=== PATIENT | female | born 1970 | race Caucasian/White ===

== ENCOUNTER → 2016-07-11 06:10 | Day surgery (SDC) | payer OTHER ==
[~2016-07-11 06:10] MED LIST: Atracurium* 10 MG/ML 10 ML VIAL ONE; Buffered Lidocaine 1% SYRIN* 3 ML/SYR SYRINGE INTRADERM ONE; Bupivacaine 0.5% SDV PF* 30 ML VIAL ONE; Dexamethasone IV* 4 MG/ML 1 ML (4 MG) ONE; EPINEPHrine AMP 1 MG/ML ONE; HYDROmorphone* 1 MG/ML 1 ML SYR IV PRN; Midazolam* 1 MG/ML 5 ML VIAL (5 MG) ONE; Ondansetron INJ* 2 MG/ML VIAL IV PRN; Ondansetron INJ* 2 MG/ML VIAL ONE; Propofol* 10 MG/ML 20 ML BTL IV PUSH ONE; ceFAZolin 2 GM PREMIX(*) 2 GM/50 ML BAG IVPB ONE; diPHENhydraMINE IV* 50 MG/ML 1 ml VIAL (BENADRYL) IV PRN; diPHENhydraMINE IV* 50 MG/ML 1 ml VIAL (BENADRYL) ONE; fentaNYL* 50 MCG/ML 2 ML VIAL (100 MCG VIAL) IV PRN; fentaNYL* 50 MCG/ML 2 ML VIAL (100 MCG VIAL) ONE; oxyCODONE TAB* 5 MG TAB PO PRN
[2016-07-11 12:24] VITALS: BP 105/70
--- NOTE | 2016-07-11 23:10 | OP ---
DATE OF OPERATION: 07/11/16 - [facility] DATE OF : 70 SURGEON: Will Castro MD OUTPATIENT THERAPIST: MALDONADO Flores ANESTHESIOLOGIST: Jose Mas MD ANESTHESIA: General anesthesia, regional interscalene block anesthesia. PRE-OP DIAGNOSES: 1. Right shoulder supraspinatus high-grade partial thickness tear. 2. Right shoulder possible subscapularis rotator cuff tear. 3. Right shoulder biceps subluxation. 4. Right shoulder superior labral tear. 5. Right shoulder subacromial impingement. 6. Right shoulder acromioclavicular joint arthritis. POST-OP DIAGNOSES: 1. Right shoulder high-grade partial thickness under-sided articular-sided supraspinatus rotator cuff tendon tear. 2. No significant subscapularis right shoulder tendon tear. 3. Right shoulder proximal biceps subluxation. 4. Right shoulder subacromial impingement. 5. Right shoulder superior labrum tear. 6. Right shoulder acromioclavicular joint osteoarthritis. OPERATIVE PROCEDURE: 1. Right shoulder examination under anesthesia. 2. Right shoulder arthroscopic rotator cuff repair, supraspinatus. 3. Right shoulder arthroscopic release of proximal biceps tendon. 4. Right shoulder arthroscopic debridement of superior labrum. 5. Right shoulder arthroscopic revision subacromial decompression. 6. Right shoulder arthroscopic distal clavicle resection. 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 The patient states that her pain greatly increased at work on with a torquing activity at work. She felt or heard a snap. This pain was treated by me with a cortisone subacromial injection and physical therapy for over 6 weeks. This caused her pain to decrease in March and April. The patient continued with home exercises. Unfortunately, the patient's pain recurred. It caused her to miss 13 days of work. Recently, she had returned to work and with only limited hours and was not tolerating that secondary to pain. The patient was also having significant pain with sleeping. These symptoms were very similar to those that she had prior to shoulder surgery in [address] Ray Richards, specifically on 06/07/13, a right shoulder subacromial decompression. She was noted at the time of that surgery to have some fraying, low grade, on the undersurface of the anterior aspect of the supraspinatus. The patient on exam had positive subacromial impingement signs, mild weakness, but no pain with belly-press maneuver, and no pain or weakness with bear hug. The patient on previous exams had had pain with supraspinatus stress testing, but did not at the last clinic visit. Positive tenderness to palpation of the AC joint, proximal biceps and positive Speed's and Wolfe signs. She had positive tenderness to palpation at Codman's point. X-rays demonstrated significant AC joint narrowing with cyst in the distal clavicle and osteophytes off the inferior clavicle. There were some signs of some decompression of the lateral aspect of the anterior hook of the acromion likely from prior subacromial decompression. MRI demonstrated a high-grade partial thickness tear on the articular side of the supra-spinatus about its anterior aspect. Posterior, there looked like there was some bursal-sided fraying. There was also some signal change in the subscapularis indicative of a possible tear. Also AC joint arthritic changes were clearly visible. The patient opted for surgical management. ANTIBIOSIS: 2 g Ancef IV. IV FLUIDS: See Anesthesia note. COMPLICATIONS: None. SPECIMEN: None. ESTIMATED BLOOD LOSS: Minimal. IMPLANTS: Mitek Neno and Neno, [place] double-loaded suture anchor 5.5 mm x1. DESCRIPTION OF PROCEDURE: Preoperative written consent. Operative extremity marked in the preoperative holding. Discussed benefits, risks, and potential complications of surgery. The patient was taken back to the operating room and placed supine on the operating room table. Regional interscalene block performed by Anesthesia. The patient was then sedated and intubated. The patient was then turned into lateral decubitus position with the right shoulder up. An axillary roll, all bony prominences padded, and ugarte bag insufflated. Fifteen pounds of longitudinal traction in right upper extremity was placed after I did an examination under anesthesia. Examination under anesthesia demonstrated 180 degrees of forward flexion passively, 90 degrees of external rotation, and 80 degrees of internal rotation with the shoulder abducted. With the shoulder in traction, the right shoulder was prepped and draped. Surgical time-out was performed. 30 cc of normal saline were injected with spinal needle into the glenohumeral joint from posterior. Posterior glenohumeral joint portal was established using standard technique. Diagnostic arthroscopy of the joint was performed. No cartilage lesions of the humeral head or glenoid. [place] complex was noted. There was noted to be significant fraying about the superior labrum. The biceps tendon did not have significant tendinosis, but it was clearly subluxed medially. There was clearly undersurface fraying and tearing of the anterior most aspect of the supraspinatus rotator cuff tendon. There was a little bit of bulbous nature to the more posterior aspect of the supraspinatus. There was a little bit of fraying in the superior most subscapularis. Anterior glenohumeral joint portal was established under direct visualization. I made this portal an anteroinferior portal just in case a subscapularis repair would be required. Through the anterior portal, I used arthroscopic scissors to cut the proximal biceps. Biceps retracted. I used arthroscopic shaver to debride some rotator interval tissue. I then debrided a little bit of fraying at the top of the subscapularis. With the subscapularis on stretch with posterior translation and external rotation of the shoulder passively, the subscapularis appeared fully intact. I probed it with arthroscopic probe, likewise fully intact. Therefore, I decided subscapularis rotator cuff tear was not required. I then used the arthroscopic shaver to debride the superior labrum back to stable base. It clearly had some unusual stuff to it indicating some instability, but it was not flapping into the joint or anything like that. I placed spinal needles x2 in the supraspinatus. One in the anterior most articular- sided supraspinatus rotator cuff tear after debriding the clearly diseased tissue with arthroscopic shaver. I then put another spinal needle more posterior where the rotator cuff had been a little bulbous, but did not have a torn tissue when I lightly debrided some with the arthroscopic shaver. Removed the scope and fluid from joint. Went to the subacromial space from posterior and anterior. Established a lateral subacromial portal under direct visualization. There was not significant bursitis in the subacromial space. I used an arthroscopic shaver to debride the gutters about the subacromial space. I used VAPR electrocautery to clear off the undersurface of the acromion. Probed the areas about each spinal needle. There was not significant softening about the posterior needle, although there was a tiny bit of fraying there visible after I used an arthroscopic shaver to remove the top layer of bursa overlying the rotator cuff tendon. That spinal needle was removed. Regarding the more anterior spinal needle, I probed in there and there was some clearly softened and torn tissue. The remaining intact rotator cuff tendon was very minimal part of the thickness of the rotator cuff at that spot. Completed the rotator cuff tear in that location with arthroscopic shaver. This only required light debridement. I then cleared off the footprint corresponding to that part of rotator cuff tendon with the VAPR electrocautery. Established posterolateral and lateral portals to aid in visualization. This tear was very anterior, so I did much of this work through an anterolateral portal rather than through my lateral portal. Visualized well my small full-thickness now supraspinatus rotator cuff tendon tear. Cuff solid grasper was used to reduce the cuff nicely. Then, I turned my attention to the acromion. Viewing posteriorly and working from lateral, I performed a subacromial decompression with an arthroscopic bur. Most of the work was done about the inferior aspect of the anterior hook of the acromion. I then addressed the rotator cuff tendon tear. I created a superolateral portal and placed through it a 5.5-mm [place] double-loaded suture anchor. I placed 2 horizontal mattress stitches in the rotator cuff tendon supraspinatus using a RPEMA device. Horizontal mattress stitches were tied. Probed the repair and it was very solid. Lateral row anchor was not required. Took photographs. Repair was stable with motion of the shoulder. Then, directed my attention to the AC joint. Debrided bursitic tissue about the AC joint with the VAPR electrocautery and shaver. Debrided 8 mm of the distal clavicle with arthroscopic bur. This decompression went through the cyst that had been visible on MRI. Visualized all 4 corners of distal clavicle nicely. Debrided a little bit of superior meniscus in that joint. Removed fluid and instruments. Closed the skin incisions with figure- of-8 stitches using nylon 4 -0 suture. Xeroform, 4x4s, ABD's, foam tape, and UltraSling. The patient was awakened, extubated, and brought to the PACU. DISPOSITION: The patient will be discharged home when medically stable. She will receive Keflex antibiosis times a week and oxycodone for pain. She will follow up in 10 to 14 days postoperative. [id number]/[facility] #: [id number] TINA
== END | disposition home or self-care (01) ==
LOC: OR 06:10
PROVIDERS: ATTEND Orthopaedic Surgery
DX: S46.011A Strain of muscle(s) and tendon(s) of the rotator cuff of right shoulder, initial encounter (principal); M75.41 Impingement syndrome of right shoulder; M19.011 Primary osteoarthritis, right shoulder; F17.210 Nicotine dependence, cigarettes, uncomplicated; K21.9 Gastro-esophageal reflux disease without esophagitis; X50.3XXA Overexertion from repetitive movements, initial encounter; Y93.89 Activity, other specified; Y92.69 Other specified industrial and construction area as the place of occurrence of the external cause; Y99.0 Civilian activity done for income or pay
CPT/HCPCS: J0171; J0690; J1100; J1200; J2250; J2405; J2704; J3010

== ENCOUNTER 2017-11-03 21:36 | Emergency (ER) | payer OTHER ==
[2017-11-03] MEDS ORDERED: Cyclobenzaprine TAB* 10 MG PO ONE (21:56)
--- NOTE | 2017-11-03 21:59 | UC ---
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 no pain radiating in to her legs - History of Current Complaint Chief Complaint: UCBackPain Stated Complaint: BACK INJURY Time Seen by Provider: 11/03/17 21:48 Hx Obtained From: Patient ?: No Onset/Duration: Gradual Onset, Lasting Days - 10-14 days, Worse Since - past 3-4 Timing: Constant Severity Initially: Moderate Severity Currently: Moderate Back Pain: Is Discrete @ Character: Aching, Throbbing, Spasmodic Aggravating Factor(s): Movement, Lifting, Bending Alleviating Factor(s): Nothing Associated Signs And Symptoms: Positive: Negative - Allergies/Home Medications Allergies/Adverse Reactions: Allergies Allergy/AdvReac Type Severity Reaction Status Date / Time acetaminophen [From Tylenol] Allergy Anaphylatic Verified 11/03/17 21:55 Shock aspirin Allergy Anaphylatic Verified 11/03/17 21:55 Shock clindamycin Allergy Rash Verified 11/03/17 21:55 erythromycin base Allergy Vomiting Verified 11/03/17 21:55 Influenza Virus Vaccines Allergy Anaphylatic Verified 11/03/17 21:55 Shock Iodine and Iodide Containing Allergy Unknown Verified 11/03/17 21:55 Produc Reaction Details NSAIDS (Non-Steroidal Allergy Anaphylatic Verified 11/03/17 21:55 Anti-Inflamma Shock procaine [From Novocain] Allergy Anaphylatic Verified 11/03/17 21:55 Shock tetracycline Allergy Rash Verified 11/03/17 21:55 NUNEZ 2 INHIBITORS Allergy Severe Anaphylatic Uncoded 07/11/16 06:32 Shock NOVACAINE Allergy Severe Anaphylatic Uncoded 07/11/16 06:32 Shock PMH/Surg Hx/FS Hx/Imm Hx Previously Healthy: No Other History Of: Negative For: Anticoagulant Therapy - Surgical History Surgical History: Yes Surgery Procedure, Year, and Place: [place], [place] [facility] [place] st[place]), 2004 - . screws in right ankle, 1989 - [facility] [place]. [place]illectomy , [place] 14 - [facility] [place]. right shoulder rotator cuff tear, 2013 - [facility] [place] - Family History Known Family History: Positive: None, Cardiac Disease - Social History Occupation: Employed Full-time Lives: With Family Alcohol Use: None Substance Use Type: None Smoking Status (MU): Current Every Day Smoker Type: Cigarettes Amount Used/How Often: 3/4 ppd Length of Time of Smoking/Using Tobacco: 29 Have You Smoked in the Last Year: Yes Household Exposure Type: Cigarettes - Immunization History Most Recent Influenza Vaccination: allergy to it Review of Systems Constitutional: Negative Skin: Negative Eyes: Negative ENT: Negative Respiratory: Negative Cardiovascular: Negative Gastrointestinal: Negative Genitourinary: Negative Motor: Negative Neurovascular: Negative Musculoskeletal: Arthralgia - mid/lowerback, Myalgia - mid/lower back Neurological: Negative Psychological: Negative Is Patient Immunocompromised?: No All Other Systems Reviewed And Are Negative: Yes Physical Exam Triage Information Reviewed: Yes Appearance: Well-Appearing, Pain Distress, Obese Vital Signs Reviewed: Yes Eye Exam: Normal Eyes: Positive: Conjunctiva Clear ENT Exam: Normal ENT: Positive: Normal ENT inspection, Hearing grossly normal. Negative: Trismus , Muffled voice, Hoarse voice Neck exam: Normal Neck: Positive: Supple, Nontender Respiratory Exam: Normal Respiratory: Positive: Chest non-tender, Normal breath sounds, No respiratory distress, No accessory muscle use Cardiovascular Exam: Normal Cardiovascular: Positive: RRR, Pulses Normal, Brisk Capillary Refill Abdominal Exam: Normal Abdomen Description: Positive: Nontender, No Organomegaly. Negative: CVA Tenderness (R), CVA Tenderness (L) Bowel Sounds: Positive: Present Musculoskeletal Exam: Normal Musculoskeletal: Positive: Strength Intact, No Edema, ROM Limited @ - lumbar spine Neurological Exam: Normal Neurological: Positive: Alert, Muscle Tone Normal Psychological Exam: Normal Skin Exam: Normal Back Pain Course/Dx - Course Course Of Treatment: muscle relaxors, pt referral, follow with pcp - Differential Dx/Diagnosis Provider Diagnoses: mid low back pain/muscle strain, nicotine dependent Discharge - Sign-Out/Discharge Documenting (check all that apply): Patient Departure - Discharge Plan Condition: Stable Disposition: HOME Patient Education Materials: Low Back Strain (ED), Lower Back Exercises (ED) Forms: *Work Release Referrals: Jag Aguilar MD [Primary Care Provider] - 5 Days - Billing Disposition and Condition Condition: STABLE Disposition: Home
[2017-11-03 22:03] VITALS: BP 118/61
== END 2017-11-03 22:11 | disposition home or self-care (01) ==
LOC: UCEAST 21:36
DX: S39.012A Strain of muscle, fascia and tendon of lower back, initial encounter (principal); M54.5 Low back pain; F17.210 Nicotine dependence, cigarettes, uncomplicated; Z88.6 Allergy status to analgesic agent; Z88.8 Allergy status to other drugs, medicaments and biological substances; Z88.1 Allergy status to other antibiotic agents; Z88.7 Allergy status to serum and vaccine; Z88.5 Allergy status to narcotic agent
CPT/HCPCS: 99212; A9270-GY; G0463

== ENCOUNTER 2018-02-25 03:29 | Emergency (ER) | payer OTHER ==
--- NOTE | 2018-02-25 04:08 | ED ---
Lower Extremity - HPI Summary HPI Summary: This patient is a 47 year old M presenting to [facility] with a chief complaint of left ankle pain. She states she was at work when she was getting out of a chair an injured her ankle. The patient rates the pain 6/10 in severity. Symptoms aggravated by weight bearing. Pt declined pain medication - History of Current Complaint Chief Complaint: EDExtremityLower Stated Complaint: LT ANKLE INJURY Time Seen by Provider: 02/25/18 03:40 Hx Obtained From: Patient Mechanism Of Injury: Other Onset of Pain: Immediate Onset/Duration: Hours Severity Initially: Moderate Severity Currently: Moderate Pain Intensity: 6 Pain Scale Used: 0-10 Numeric Timing: Constant Location: Is Discrete @ - L ankle Associated Signs And Symptoms: Negative: Fever Aggravating Factor(s): Ambulation Able to Bear Weight: Yes Related History: Occupational Injury - Allergies/Home Medications Allergies/Adverse Reactions: Allergies Allergy/AdvReac Type Severity Reaction Status Date / Time acetaminophen [From Tylenol] Allergy Anaphylatic Verified 02/25/18 03:33 Shock aspirin Allergy Anaphylatic Verified 02/25/18 03:33 Shock clindamycin Allergy Rash Verified 02/25/18 03:33 erythromycin base Allergy Vomiting Verified 02/25/18 03:33 Influenza Virus Vaccines Allergy Anaphylatic Verified 02/25/18 03:33 Shock Iodine and Iodide Containing Allergy Unknown Verified 02/25/18 03:33 Produc Reaction Details NSAIDS (Non-Steroidal Allergy Anaphylatic Verified 02/25/18 03:33 Anti-Inflamma Shock procaine [From Novocain] Allergy Anaphylatic Verified 02/25/18 03:33 Shock tetracycline Allergy Rash Verified 02/25/18 03:33 NUNEZ 2 INHIBITORS Allergy Severe Anaphylatic Uncoded 02/25/18 03:33 Shock NOVACAINE Allergy Severe Anaphylatic Uncoded 02/25/18 03:33 Shock PMH/Surg Hx/FS Hx/Imm Hx Endocrine/Hematology History: Denies: Hx Anticoagulant Therapy, Hx Diabetes, Hx Thyroid Disease Cardiovascular History: Reports: Hx Angina - HX OF 4 YEARS AGO- NO PROBLEMS SINCE, Hx Hypertension - was on meds for 5 yrs, no longer uses, Other Cardiovascular Problems/Disorders - cardiac cath 2004, no stents - 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 Denies: Hx Pacemaker/ICD Respiratory History: Denies: Hx Asthma, Hx Chronic Obstructive Pulmonary Disease (COPD) GI History: Reports: Hx Gastroesophageal Reflux Disease - DIET CONTROLLED- NO MEDICATION FOR Denies: Hx Ulcer History: Denies: Hx Renal Disease Musculoskeletal History: Reports: Hx Arthritis - right shoulder, Other Musculoskeletal History - right ankle fx, 1989 Sensory History: Reports: Hx Contacts or Glasses - glasses Denies: Hx Hearing Aid Opthamlomology History: Reports: Hx Contacts or Glasses - glasses Neurological History: Denies: Hx Dementia, Hx Seizures Psychiatric History: Denies: Hx Panic Disorder, Hx Substance Abuse - Cancer History Cancer Type, Location and Year: cervical - HYSTERECTOMY Hx Chemotherapy: No Hx Radiation Therapy: No - Surgical History Surgery Procedure, Year, and Place: hysterectomy, 1997 - [facility] [place]. cardiac cath (no stents), 2004 - [facility]. screws in right ankle, 1989 - [facility] [place]. tonsillectomy , age 14 - [facility] [place]. right shoulder rotator cuff tear, 2013 - [facility] [place] Hx Anesthesia Reactions: No - Immunization History Date of Tetanus Vaccine: Unk Date of Influenza Vaccine: Fall 2011 Infectious Disease History: No Infectious Disease History: Denies: Hx Clostridium Difficile, Hx Hepatitis, Hx Human Immunodeficiency Virus (HIV), Hx of Known/Suspected MRSA, Hx Shingles, Hx Tuberculosis, Hx Known/ Suspected VRE, Hx Known/Suspected VRSA, History Other Infectious Disease, Traveled Outside the in Last 30 Days - Family History Known Family History: Positive: None, Cardiac Disease - Social History Alcohol Use: Rare Alcohol Amount: 1-2 x per year Substance Use Type: Reports: None Smoking Status (MU): Light Every Day Tobacco Smoker Type: Cigarettes Amount Used/How Often: 3/4 ppd Length of Time of Smoking/Using Tobacco: 29 Have You Smoked in the Last Year: Yes Review of Systems Negative: Fever Positive: Other - L ankle pain All Other Systems Reviewed And Are Negative: Yes Physical Exam - Summary Physical Exam Summary: VITAL SIGNS: Reviewed. GENERAL: Patient is a well-developed and nourished female who is lying comfortable in the stretcher. Patient is not in any acute respiratory distress. HEAD AND FACE: No signs of trauma. No ecchymosis, hematomas or skull depressions. No sinus tenderness. EYES: PERRLA, EOMI x 2, No injected conjunctiva, no nystagmus. EARS: Hearing grossly intact. Ear canals and tympanic membranes are within normal limits. MOUTH: Oropharynx within normal limits. NECK: Supple, trachea is midline, no adenopathy, no JVD, no carotid bruit, no c- spine tenderness, neck with full ROM. CHEST: Symmetric, no tenderness at palpation LUNGS: Clear to auscultation bilaterally. No wheezing or crackles. CVS: Regular rate and rhythm, S1 and S2 present, no murmurs or gallops appreciated. ABDOMEN: Soft, non-tender. No signs of distention. No rebound no guarding, and no masses palpated. Bowel sounds are normal. EXTREMITIES: FROM in all major joints, no edema, no cyanosis or clubbing. Left ankle is mildly TTP NEURO: Alert and oriented x 3. No acute neurological deficits. Speech is normal and follows commands. SKIN: Dry and warm Triage Information Reviewed: Yes Vital Signs On Initial Exam: Initial Vitals Temp Pulse Resp BP Pulse Ox 98.1 F 88 16 126/70 98 02/25/18 03:30 02/25/18 03:30 02/25/18 03:30 02/25/18 03:30 02/25/18 03:30 Vital Signs Reviewed: Yes Diagnostics - Vital Signs Vital Signs Temp Pulse Resp BP Pulse Ox 02/25/18 03:30 98.1 F 88 16 126/70 98 - Laboratory Lab Statement: Any lab studies that have been ordered have been reviewed, and results considered in the medical decision making process. - Radiology Ankle Xray Radiology Interpretation Completed By: ED Physician Summary of Radiographic Findings: No fracture seen. Pending official report. Lower Extremity Course/Dx - Course Course Of Treatment: This patient is a 47 year old M presenting to [facility] with a chief complaint of left ankle pain. She states she was at work when she was getting out of a chair an injured her ankle. The patient rates the pain 6/10 in severity. Symptoms aggravated by weight bearing. Pt declined pain medication. Xray was negative. The patient will be discharged and follow up with ortho. - Diagnoses Provider Diagnoses: Ankle sprain Discharge - Sign-Out/Discharge Documenting (check all that apply): Patient Departure - Discharge Plan Condition: Stable Disposition: HOME Patient Education Materials: Ankle Sprain (ED) Referrals: Romi Richardson MD [Medical Doctor] - 2 Days Additional Instructions: Return to the emergency department for any new or worsening symptoms. - Attestation Statements Document Initiated by Scribe: Yes Documenting Scribe: Christos Lee Provider For Whom Scribe is Documenting (Include Credential): Jayy Malone MD Scribe Attestation: Christos Weaver, scribed for Jayy Malone MD on 02/25/18 at 0423.
[2018-02-25 04:46] VITALS: BP 124/72
== END 2018-02-25 04:46 | disposition home or self-care (01) ==
LOC: ED 03:29
DX: S93.402A Sprain of unspecified ligament of left ankle, initial encounter (principal); X58.XXXA Exposure to other specified factors, initial encounter; Y92.9 Unspecified place or not applicable; Y99.0 Civilian activity done for income or pay; F17.210 Nicotine dependence, cigarettes, uncomplicated
CPT/HCPCS: 99282